=== PATIENT | female | born 1990 | race Caucasian/White ===

== ENCOUNTER 2017-02-25 21:06 | Emergency (ER) | payer OTHER ==
[~2017-02-25] VITALS: Ht 160 cm; Wt 78.5 kg
[~2017-02-25 21:06] MED LIST: ACHYD1T PO; ALPR1T PO; BIRTH CONTROL PO; BUDE10.2 IH; DOCU100C37 PO; ESZO3TAB3 PO; IBUP-1780 PO; LISI10TA PO; NORG1TAB14 PO; OXYC-12 PO; OXYC-191 PO; OXYC-465 PO; PANT40TA3 PO; RT-ALBUINH IH; SUCR1TAB PO; SULF1TAB35 PO; TRAZ100T92 PO
[2017-02-25] MEDS ORDERED: BUTA1TAB9 (22:35)
[2017-02-26] MEDS ORDERED: KETOROLAC 60 MG/2 ML VIAL IM ONE (00:15)
[2017-02-26] MEDS ORDERED: methylPREDNISolone 80 MG/ML (DEPO MEDROL) VIAL IM ONE (00:15)
[2017-02-26] MEDS ORDERED: ORPHENADRINE 60 MG/2 ML (NORFLEX) AMP IM ONE (00:15)
--- NOTE | 2017-02-26 00:17 | ED Back Pain ---
General Chief Complaint: Back Problems Stated Complaint: BACK PAIN Nursing Triage Note: c/o mid back pain since Friday morning, then hurt it worse on Friday lifting a disabled family member, heard a pop when lifting and now the pain radiates to tailbone and left hip Nursing Sepsis Screen: No Definite Risk Source of Information: Patient Exam Limitations: No Limitations History of Present Illness Time Seen by Provider: 00:05 Initial Comments This 26-year-old young lady presents to the emergency room with complaints of sore back that started upon waking February 23. She was helping move a nephew with behavior problems on February 24 when she heard a popping sound in her back and then experienced exacerbating pain. She has tried topical medications, Tylenol, and Percocet. She reports these have not been sufficiently helpful. She does not take NSAID medications due to history of a GI bleed. She denies any bowel or bladder dysfunction or lower extremity weakness. Allergies and Home Medications Allergies Coded Allergies: Penicillins (Unverified Allergy, Unknown, HIVES, 06/26/16) SWELLING AND ITCHING ciprofloxacin (Verified Allergy, Unknown, HIVES, 06/26/16) quetiapine (Verified Allergy, Unknown, seizures, 06/26/16) Uncoded Allergies: NSAIDS (Allergy, Unknown, 02/25/17) Home Medications Albuterol Sulfate 8.5 Gm Hfa.aer.ad, 2 PUFF IH Q8H PRN for SHORTNESS OF BREATH, (Reported) Alprazolam 1 Mg Tablet, 1 MG PO TID PRN for ANXIETY, (Reported) Budesonide/Formoterol Fumarate 10.2 Gm Hfa.aer.ad, 2 PUFF IH BID, (Reported) Butalb/Acetaminophen/Caffeine 1 Each Tablet, (Reported) Docusate Sodium 100 Mg Capsule, 100 MG PO BID, #60 Prescribed by: JANKI OROSCO on 07/04/16 0759 Oxycodone HCl/Acetaminophen 1 Each Tablet, 1 EACH PO Q4H PRN for PAIN, (Reported ) Oxycodone HCl/Acetaminophen 1 Each Tablet, 1-2 TAB PO Q4H PRN for PAIN, #60 Prescribed by: JANKI OROSCO on 07/04/16 0759 Pantoprazole Sodium 40 Mg Tablet.dr, 40 MG PO DAILY, (Reported) Sucralfate 1 Gm Tablet, 1 GM PO ACHS, (Reported) Trazodone HCl 100 Mg Tablet, 50-100 MG PO HS, (Reported) take 1/2 to 1 tab Constitutional: no symptoms reported EENTM: no symptoms reported Respiratory: no symptoms reported Cardiovascular: no symptoms reported Gastrointestinal: no symptoms reported Genitourinary: no symptoms reported : No Musculoskeletal: see HPI Skin: no symptoms reported Psychiatric/Neurological: No Symptoms Reported Past Guifmjt-[id number]-[id number] Hx Patient Social History Alcohol Use: Denies Use Recreational Drug Use: No Smoking Status: Current Everyday Smoker Type Used: Cigarettes 2nd Hand Smoke Exposure: Yes Recent Foreign Travel: No Contact w/Someone Who Travel: No Recent Infectious Disease Expo: No Recent Hopitalizations: No Immunizations Up To Date Tetanus Booster (TDap): Unknown Seasonal Allergies Seasonal Allergies: Yes Surgeries History of Surgeries: Yes (DENTAL, dxls) Surgeries: Abdominal, Hysterectomy Respiratory History of Respiratory Disorde: Yes Respiratory Disorders: Asthma Cardiovascular History of Cardiac Disorders: Yes (NO LONGER TAKING MEDS) Cardiac Disorders: Hypertension Neurological History of Neurological Disord: Yes (seroquel caused a seizure several yrs ago , none since stopping seroquel) Neurological Disorders: Seizure Disorder Reproductive System Hx Reproductive Disorders: Yes (PCOS) Female Reproductive Disorders: Endometriosis, Ovarian Cyst Genitourinary History of Genitourinary Disor: No Gastrointestinal History of Gastrointestinal Di: Yes (nausea/vomiting, ) Gastrointestinal Disorders: Gastroesophageal Reflux Musculoskeletal History of Musculoskeletal Dis: No Endocrine History of Endocrine Disorders: No (possible hypothyroidsim, checking recheck in 2 months) HEENT History of HEENT Disorders: No Cancer History of Cancer: No Psychosocial History of Psychiatric Problem: Yes (INSOMNIA) Behavioral Health Disorders: Sleep Difficulties, Anxiety Integumentary History of Skin or Integumenta: No Blood Transfusions History of Blood Disorders: No Family Medical History Family Medial History: Asthma 19 FATHER Diabetes mellitus 19 FATHER Hypertension 19 FATHER 19 MOTHER G8 SISTER Physical Exam Vital Signs Vital Sign - Last 12Hours 02/25/ 22:16 Temp 99.4 Pulse 82 Resp 20 B/P (MAP) 133/90 Pulse Ox 100 O2 Delivery Room Air Capillary Refill : Less Than 3 Seconds General Appearance: WD/WN, Mild Distress HEENT: PERRL/EOMI, Normal ENT Inspection Neck: Normal Inspection Cardiovascular: Regular Rate, Rhythm, No Edema, No Murmur Respiratory: Lungs Clear, Normal Breath Sounds, No Accessory Muscle Use, No Respiratory Distress Gastrointestinal: Normal Bowel Sounds, Non Tender, Soft Back: Normal Inspection, No Vertebral Tenderness, Other (Tenderness in the paraspinous musculature, especially on the left) Extremity: Normal Inspection, No Pedal Edema Neurologic/Psychiatric: Alert, Oriented x3, No Motor/Sensory Deficits, Normal Mood/Affect, telesales specialist II-XII Norm as Tested Skin: Normal Color, Warm/Dry Progress/Results/Core Measures Results/Orders My Orders Orders - JEZ SHEPHERD MD Orphenadrine Injection (Norflex Injectio (02/26/17 00:15) Ketorolac Injection (Toradol Injection) (02/26/17 00:15) Methylprednisolone Acetate Inj (Depo-Med (02/26/17 00:15) Im/Sub-Q Injection Non-Ab Ed (02/25/17 ) Vital Signs/I&O Vital Sign - Last 12Hours 02/25/17 02/26/17 22:16 00:36 Temp 99.4 98.9 Pulse 82 69 Resp 20 18 B/P (MAP) 133/90 Pulse Ox 100 100 O2 Delivery Room Air Room Air Blood Pressure Mean: 104 Progress Note : Progress Note Patient was treated with Toradol and Norflex injections. She did not want to try any oral steroids or NSAIDs due to history of GI irritation and bleeds. An injection of Depo-Medrol was therefore added to her treatment before dismissal. Departure Impression Impression: Primary Impression: Mid back pain Disposition: 01 HOME, SELF-CARE Condition: Improved Departure-Patient Inst. Decision time for Depature: 00:00 Referrals: NO,LOCAL PHYSICIAN (PCP/Family) Primary Care Physician Patient Instructions: Upper Back Pain (DC) Add. Discharge Instructions: Follow-up with your primary care provider as soon as possible. The anti- inflammatories and steroids received tonight showed increase in effectiveness through the night. Avoid heavy lifting or straining until symptoms resolve. You may take Tylenol at home. Return to care if symptoms worsen. All discharge instructions reviewed with patient and/or family. Voiced understanding. JEZ SHEPHERD MD Feb 26, 2017 12:17 am
[2017-02-26 00:36] VITALS: BP 145/85
== END 2017-02-26 00:34 | disposition home or self-care (01) ==
LOC: EDUNIT# 21:06 → ER 21:08
DX: M54.9 Dorsalgia, unspecified (principal); J45.909 Unspecified asthma, uncomplicated; I10 Essential (primary) hypertension; K21.9 Gastro-esophageal reflux disease without esophagitis; G40.909 Epilepsy, unspecified, not intractable, without status epilepticus; F41.9 Anxiety disorder, unspecified; F17.210 Nicotine dependence, cigarettes, uncomplicated; Z87.448 Personal history of other diseases of urinary system; X50.0XXA Overexertion from strenuous movement or load, initial encounter
CPT/HCPCS: 96372; 99284

== ENCOUNTER 2022-05-16 14:52 | Emergency (ER) | payer MEDICAID, OTHER ==
[~2022-05-16] VITALS: Ht 162 cm; Wt 64.7 kg
[~2022-05-16 14:52] MED LIST changes: +ALBU8.5H6 IH; +BUTA-235; -OXYC-465 PO; +OXYC-556 PO; -PANT40TA3 PO; +PANT40TA52 PO; -RT-ALBUINH IH; +TRAZ-227 PO; -TRAZ100T92 PO
[2022-05-16 15:05] VITALS: BP 165/99
== END 2022-05-16 15:49 | disposition left against medical advice (07) ==
LOC: EDUNIT# 14:52 → ER 14:55
DX: F41.9 Anxiety disorder, unspecified (principal); F39 Unspecified mood [affective] disorder
CPT/HCPCS: 99281